=== PATIENT | male | born 1965 | race Caucasian/White ===

== ENCOUNTER 2016-06-10 07:38 | Emergency (ER) | payer OTHER ==
[2016-06-10] MEDS ORDERED: Sodium Chloride 0.9% 1,000 ML PRIMARY IV ONE (07:50)
[2016-06-10] MEDS ORDERED: NORMAL SALINE 10 ML SYRINGE FLUSH IVP PRN (07:50)
--- NOTE | 2016-06-10 07:53 | EKG ---
[address] [address] Measurements Intervals [place] Rate: 65 P: 24 PA: 157 QRS: 59 QRSD: 92 T: 57 QT: 377 QTc: 388 Interpretive Statements SINUS RHYTHM WITH MARKED SINUS ARRHYTHMIA No previous ECG available for comparison Electronically Signed On 06-10-16 09:14:19 MDT by Johnny Fabian MD [email or web address]
[2016-06-10 07:56] LABS: BASOPHILS # (AUTO) 0.01 10*3/UL; BASOPHILS % (AUTO) 0.1 % (0-1); EOSINOPHILS # (AUTO) 0.07 10*3/UL; HEMATOCRIT 45.5 % (42.0-52.0); HEMOGLOBIN 15.3 g/dL (14.0-18.0); LYMPHOCYTES # (AUTO) 0.61 10*3/uL; MEAN CORPUSCULAR HEMOGLOBIN 29.1 PG (27-31); MEAN CORPUSCULAR HGB CONC 33.6 g/dL (33-37); MEAN CORPUSCULAR VOLUME 86.5 FL (80-90); MEAN PLATELET VOLUME 10.5 FL (7.4-12.2); MONOCYTES # (AUTO) 0.26 10*3/UL (0.3-0.8); MONOCYTES % (AUTO) 3.6 % (5-15); NEUTROPHILS # (AUTO) 6.19 10*3/UL; NEUTROPHILS % (AUTO) 86.7 % (50-80); RED BLOOD COUNT 5.26 10^6/uL (4.70-6.10)
--- NOTE | 2016-06-10 07:56 | PDOC ---
Syncope/Near-Syncope HPI - General Chief Complaint: Syncope / Near-Syncope Stated Complaint: NEAR SYNCOPAL EPISODE Date Seen by Provider: 06/10/16 Time Seen by Provider: 07:45 Source: POSITIVE: Patient, EMS Exam Limitations: POSITIVE: No limitations Nurse's Notes Reviewed & Considered: Yes EMS Report Reviewed & Considered: Verbal - History of Present Illness Initial Comments: The patient is a 51-year-old male who is brought to the emergency department by ambulance after he nearly passed out at work. He reports that approximately 2 weeks ago he attended a and since then he states he has not been sleeping well. 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 Apparently this morning when he got to work he was standing in the shop further morning meeting when he suddenly became very lightheaded. His coworker states that he became very pale and sweaty and he had to sit down. He never did fully lose consciousness however he was not responding well with his coworkers so they subsequently called 911. By the time EMS arrived the patient was starting to feel better although he reported having some tingling primarily in his hands. He denied any associated headache, chest pain, shortness of breath or focal numbness or weakness in his extremities. His blood sugar on scene was 122. Oxygen levels were good on room air and he was not hypotensive or tachycardic. An IV was established and a bolus was initiated in the field. He did have an EKG and there was some concern about possibly some slight elevation in the inferior leads and therefore he did receive aspirin. The patient denies any similar symptoms previously. He is generally healthy and does not take any prescription medications. He has not been diagnosed with any medical issues. He does not smoke or use alcohol or illicit drugs. He does not have a significant family history of heart disease. - Patient Home Medications Home Medications: Home Medications Loratadine/Pseudoephedrine [Claritin-D 24 Hour Tablet] 1 each PO PRN PRN - Patient Allergies Allergies/Adverse Reactions: Allergies Allergy/AdvReac Type Severity Reaction Status Date / Time No Known Allergies Allergy Verified 06/10/16 07:46 Past Medical History - heen HEENT History: Denies History Cardiovascular History: Denies History Respiratory History: Denies History Gastrointestinal History: Denies History Genitourinary History: Denies History Endocrine History: Denies History Musculoskeletal History: Denies History Neurological History: Denies History Blood Disorders: Denies History Psychiatric History: Denies History Cancer History: Denies History History of MDRO: No Alcohol Use: None Substance Use Type: None Significant Family History: No pertinent family hx Past Medical History Reviewed: Reviewed - No Changes ROS - Limitations ROS Limitations: No Limitations Constitution: REPORTS: Weakness (He reports that he still has just some mild generalized weakness since this happened this morning), Other (No recent illness ). DENIES: Chills, Fever Cardiovascular: DENIES: Chest Pain, Heart Racing, Heart Palpitations, Blood Pressure Problem, Edema Respiratory: REPORTS: Denies Resp Symptoms. DENIES: Shortness Of Breath Neurological: REPORTS: Tingling (He did have some tingling in his upper extremities on seen however this has resolved now), Fainting (He did not pass out completely). DENIES: Headache, Numbness, Seizure Activity, Facial Asymmetry , Dysphagia, Weakness (No focal weakness) Gastrointestinal: REPORTS: Nausea (Resolved now). DENIES: Abdominal Pain, Vomitting Musculoskeletal: REPORTS: Denies MS Symptoms Eyes: REPORTS: Denies Symptoms ENT: REPORTS: Denies Symptoms Skin: DENIES: Rash Syncope / Near-Syncope Exam - General Appearance General Appearance: POSITIVE: Alert, Cooperative, No Acute Distress - HEENT HEENT: POSITIVE: Head Inspection Nml, Eyes Inspection Nml, Ears Inspection Nml, Nose Inspection Nml, Pharynx Inspect. Nml, PERRL, EOMI - Neck / Back Neck/Back: POSITIVE: Supple - Respiratory Respiratory: POSITIVE: No Respiratoy Distress, Breath Sounds Normal - Cardiovascular Cardiovascular: POSITIVE: Regular Rate and Rhythm, Heart Sounds Normal Peripheral Pulses: Dorsalis-pedis (R): 2+, Dorsalis-pedis (L): 2+ - Abdomen Abdomen: Soft: (All Quadrants), Denies Tenderness: (All Quadrants), No Distention: (All Quadrants) - Skin Skin: POSITIVE: Intact, No Rash - Extremities Extremity: Normal ROM: (All Extremities), Normal Inspection: (All Extremities) - Neuro / Psych Higher Functions: POSITIVE: Oriented to Person, Oriented to Place, Oriented to Time, Normal Speech, Normal Cognition Cranial Nerves: POSITIVE: Normal As Tested Sensorimotor: POSITIVE: No Motor Deficits, No Sensory Deficits Syncope/Near-Syncope Progress - Results Reviewed by me Lab Results:: Laboratory Results 06/10/16 Range/Units 07:25 WBC 7.15 (4.8-10.8) 10^3/uL RBC 5.26 (4.70-6.10) 10^6/uL Hgb 15.3 (14.0-18.0) g/dL Hct 45.5 (42.0-52.0) % MCV 86.5 (80-90) FL MCH 29.1 (27-31) PG MCHC 33.6 (33-37) g/dL RDW Std Deviation 40.5 (39-50) fL RDW Coeff of Ramírez 13.0 (11.5-14.5) % Plt Count 315 (140-350) 10*3/uL MPV 10.5 (7.4-12.2) FL Immature Gran % (Auto) 0.1 (0-5) % Neut % (Auto) 86.7 H (50-80) % Lymph % (Auto) 8.5 L (10-50) % [place] % (Auto) 3.6 L (5-15) % Eos % (Auto) 1.0 (0-8) % Baso % (Auto) 0.1 (0-1) % Immature Gran # (Auto) 0.01 10*3/UL Neut # (Auto) 6.19 10*3/UL Lymph # (Auto) 0.61 10*3/uL [place] # (Auto) 0.26 L (0.3-0.8) 10*3/UL Eos # (Auto) 0.07 10*3/UL Baso # (Auto) 0.01 10*3/UL WBC Morphology Comment Normal morphology (NORM) Plt Morphology Comment Normal morphology (NORM) RBC Morph Comment Normal morphology (NORM) Sodium 138 (135-145) meq/L Potassium 4.1 (3.8-5.2) meq/L Chloride 103 (98-112) meq/L Carbon Dioxide 23 (23-33) meq/L Anion Gap 12 (5-20) BUN 20 (7-22) mg/dL Creatinine 0.9 (0.70-1.50) mg/dL Estimated GFR > 60 (>60 ml/min/1.73m(2)) BUN/Creatinine Ratio 22.22 H (6-20) Glucose 119 H (78-110) mg/dL Calculated Osmolality 289.0 (267-292) mOsm/kg Calcium 9.4 (8.7-10.7) mg/dL Magnesium 2.0 (1.6-2.4) mg/dL Total Bilirubin 1.2 (0.3-1.2) mg/dL AST 33 (21-57) IU/L ALT 21 (21-72) IU/L Alkaline Phosphatase 111 (38-126) IU/L Troponin I < 0.012 (< 0.040) ng/mL Total Protein 8.1 H (6.1-8.0) g/dL Albumin 4.4 (3.5-4.8) g/dL Globulin 3.7 (2.50-4.10) g/dL Albumin/Globulin Ratio 1.10 L (1.3-2.0) mg/g TSH 0.812 (0.2700-4.2000) uIU/mL EKG Interpreted/Reviewed By Me:: Yes EKG Interpretation:: POSITIVE: Normal Sinus Rhythm, Normal Rate, Normal Intervals, Normal QRS, Normal ST/T, Other (There is no ST segment changes on his EKG done here in the emergency department, his EKG from the field was also reviewed, the concern per EMS believe is early repolarization rather than ST segment elevation, he has had no prior EKGs for comparison) - Patient's Progress MDM / ED Course: The patient did receive a 1 L bolus of normal saline. He remained asymptomatic here in the emergency department. His initial EKG shows normal sinus rhythm with no acute changes. His blood work is all essentially unremarkable except for slightly elevated BUN/creatinine ratio. At this time he had a near syncopal event which was most likely some type of vagal event compounded by recent stress and dehydration. He is advised to rest and push fluids today. He 'll return to the emergency room if any worsening or change in symptoms. He is advised follow-up with primary care in 1-2 weeks. Patient Care Time - Estimated PCT Patient Care Time (In Minutes): 25 Vital Signs - Recent Vital Signs Vital Signs: Vital Signs (Last 8 hours) Temp Pulse Pulse Pulse Pulse Resp BP 06/10/16 08:11 75 82 83 119/71 06/10/16 07:57 97.3 F 82 16 BP BP BP Pulse Ox 06/10/16 08:11 114/72 111/72 06/10/16 07:57 123/96 96 - VS Reviewed Vital Signs Reviewed: Yes Discharge Clinical Impression: Near syncope, Hypovolemia Discharge Disposition: Discharged to Home Condition: Stable Patient Instructions Given at Discharge: Dehydration (ED), Near Syncope (ED) Additional Instructions: The EKG done here in the emergency room does not reveal any sign of cardiac abnormality or heart attack. Your blood work is all essentially normal except for showing some signs of dehydration. At this point it appears that the near passing out episode was most likely a combination of dehydration, recent stressors and likely some component of a vagal reaction. Recommend rest and push fluids today. Return to the emergency room if any further lightheadedness , passing out, chest pain, headache, numbness or weakness in her extremities, any worsening or change in symptoms. You should be okay to return to work tomorrow. Recommend follow-up with primary care in 1-2 weeks. Follow Up With: NONE,NONE [Primary Care Provider] -
[2016-06-10 07:57] LABS: PLATELET MORPHOLOGY COMMENT NORMAL MORPHOLOGY (NORM); RBC MORPHOLOGY COMMENT NORMAL MORPHOLOGY (NORM); WBC MORPHOLOGY COMMENT NORMAL MORPHOLOGY (NORM)
[2016-06-10 08:03] VITALS: RESP 16; TEMP 97.3
[2016-06-10 08:03] LABS: BLOOD UREA NITROGEN 20 mg/dL (7-22); BUN/CREATININE RATIO 22.22 (6-20); CALCIUM 9.4 mg/dL (8.7-10.7); EST GLOMERULAR FILTRATION > 60 (>60 ml/min/1.73m(2)); SERUM ALBUMIN 4.4 g/dL (3.5-4.8)
== END 2016-06-10 09:05 | disposition home or self-care (01) ==
LOC: ER 07:38
DX: R55 Syncope and collapse (principal); E86.1 Hypovolemia; R42 Dizziness and giddiness; R53.1 Weakness
CPT/HCPCS: 80053; 83735; 84443; 84484; 85025; 93005; 93010; 99283